=== PATIENT | female | born 1990 | race Caucasian/White ===

== ENCOUNTER → 2022-05-28 | Outpatient (REF) | payer OTHER ==
[2022-05-28 21:27] LABS: APPEARANCE, URINE MANUAL HAZY (CLEAR); COLOR, URINE MANUAL YELLOW (YELLOW); PH,URINE MAN 5.5 UNITS (5.0 - 7.0); PROTEIN, URINE MANUAL 2+ mg/dL (NEGATIVE)
[2022-05-28 21:28] LABS: BILIRUBIN, URINE MANUAL NEGATIVE (NEGATIVE); BLOOD URINE MANUAL POSITIVE (NEGATIVE); GLUCOSE, URINE (UA) MANUAL NEGATIVE (NEGATIVE); KETONE, URINE MANUAL NEGATIVE (NEGATIVE); LEUKOCYTE ESTERASE, URINE MAN POSITIVE (NEGATIVE); NITRITE, URINE MANUAL POSITIVE (NEGATIVE); UROBILINOGEN, URINE MANUAL NORMAL (NORMAL)
[2022-05-28 21:43] LABS: BACTERIA, URINE SMALL AMOUNT; HYALINE CAST, URINE NONE SEEN /lpf (0-1); RBC, URINE 40-50 /hpf (0-3); SQUAMOUS EPITHELIAL CELL URINE MOD AMOUNT /hpf (SMALL AMT); WBC, URINE 30-40 /hpf (0-3)
== END ==
LOC: M LAB REF 21:21
PROVIDERS: ATTEND Physician Assistant Medical
DX: N39.0 Urinary tract infection, site not specified (principal)

== ENCOUNTER → 2022-07-17 | Outpatient (REF) | payer OTHER ==
[2022-07-17 14:05] LABS: APPEARANCE, URINE HAZY (CLEAR); BACTERIA, URINE AUTO 1+ (NEGATIVE); BILIRUBIN, URINE AUTO NEGATIVE (NEGATIVE); BLOOD, URINE BLOOD NEGATIVE (NEGATIVE); COLOR, URINE YELLOW (YELLOW); GLUCOSE, URINE (UA) AUTO NEGATIVE (NEGATIVE); KETONE, URINE AUTO NEGATIVE (NEGATIVE); LEUKOCYTE ESTERASE, URINE AUTO 2+ (NEGATIVE); NITRITE, URINE AUTO NEGATIVE (NEGATIVE); PROTEIN, URINE AUTO NEGATIVE (NEGATIVE); RBC, URINE AUTO 4 /HPF (0-3); SQUAMOUS EPITHELIAL CELL UR AU 3 /HPF (0-6); UROBILINOGEN, URINE AUTO 0.2 mg/dL (0.0-2.0); WBC, URINE AUTO 59 /HPF (0-3)
== END ==
LOC: M LAB REF 12:30
PROVIDERS: ATTEND Physician Assistant Medical
DX: N39.0 Urinary tract infection, site not specified (principal)

== ENCOUNTER → 2022-08-03 | Outpatient (REF) | payer OTHER | LOC: M LAB REF 08:42 | PROVIDERS: ATTEND Internal Medicine | DX: N39.0 Urinary tract infection, site not specified (principal) ==

== ENCOUNTER → 2022-09-02 | Outpatient (REF) | payer OTHER ==
[2022-09-02 13:45] LABS: APPEARANCE, URINE HAZY (CLEAR); BACTERIA, URINE AUTO 1+ (NEGATIVE); BILIRUBIN, URINE AUTO NEGATIVE (NEGATIVE); BLOOD, URINE BLOOD NEGATIVE (NEGATIVE); COLOR, URINE YELLOW (YELLOW); GLUCOSE, URINE (UA) AUTO NEGATIVE (NEGATIVE); KETONE, URINE AUTO TRACE mg/dL (NEGATIVE); LEUKOCYTE ESTERASE, URINE AUTO 3+ (NEGATIVE); NITRITE, URINE AUTO NEGATIVE (NEGATIVE); PROTEIN, URINE AUTO NEGATIVE (NEGATIVE); RBC, URINE AUTO 2 /HPF (0-3); SPECIFIC GRAVITY URINE AUTO 1.012 (1.002-1.035); SQUAMOUS EPITHELIAL CELL UR AU 1 /HPF (0-6); UROBILINOGEN, URINE AUTO 0.2 mg/dL (0.0-2.0); WBC, URINE AUTO 127 /HPF (0-3)
== END ==
LOC: M LAB REF 12:46
PROVIDERS: ATTEND Physician Assistant Medical
DX: N39.0 Urinary tract infection, site not specified (principal)

== ENCOUNTER 2022-10-26 14:15 | Outpatient (CLI) | payer OTHER ==
[~2022-10-26] VITALS: Ht 152.4 cm; Wt 63.2 kg
[2022-10-26 14:37] VITALS: BP 142/82; O2SAT 100
[2022-10-26] MEDS ORDERED: PRENTAB9 PO (14:49)
[2022-10-26] MEDS ORDERED: LEVOTAB10 PO (14:51)
[2022-10-26] MEDS ORDERED: PEPC1TAB5 PO (14:51)
[2022-10-26] MEDS ORDERED: ASPI81CH33 PO (14:51)
[2022-10-26] MEDS ORDERED: FLON1SPR NARES (14:51)
[2022-10-26] MEDS ORDERED: FAMO20TA PO (14:51)
[2022-10-26] MEDS ORDERED: MONT10TA97 PO (14:51)
[2022-10-26] MEDS ORDERED: HOME MED LIST COMPLETE! XX SCH (14:55)
[2022-10-26 15:54] LABS: HEMATOCRIT 35.4 % (36.0-47.0); HEMOGLOBIN 11.7 g/dl (12.0-15.5); MEAN CORPUSCULAR HEMOGLOBIN 33.1 pg (27.0-33.0); MEAN CORPUSCULAR HGB CONC 33.1 g/dl (32.0-36.5); PLATELET COUNT, AUTOMATED 262 10^3/uL (150-450); RED BLOOD COUNT 3.54 10^6/uL (4.00-5.40); WHITE BLOOD COUNT 9.7 10^3/uL (4.0-10.0)
[2022-10-26 16:12] LABS: INR 0.87
[2022-10-26 16:13] LABS: PARTIAL THROMBOPLASTIN TIME 24.4 SECONDS (24.8-34.2)
[2022-10-26 17:43] VITALS: BP 119/68
[2022-10-26 18:04] LABS: GC DNA AMPLIFICATION NEGATIVE (NEGATIVE)
[2022-10-26 18:51] VITALS: BP 115/59
[2022-10-26] MEDS ORDERED: FLUCONAZOLE 50MG TABLET PO ONE (20:00)
== END 2022-10-26 21:00 | disposition home or self-care (01) ==
LOC: M LDO 14:15
PROVIDERS: ATTEND Obstetrics & Gynecology
DX: O23.592 Infection of other part of genital tract in pregnancy, second trimester (principal); Z3A.22 22 weeks gestation of pregnancy; O44.02 Complete placenta previa NOS or without hemorrhage, second trimester; Z88.8 Allergy status to other drugs, medicaments and biological substances; Z91.018 Allergy to other foods; Z91.040 Latex allergy status; Z91.011 Allergy to milk products; Z91.010 Allergy to peanuts; Z88.2 Allergy status to sulfonamides
CPT/HCPCS: 36415; 59025; 76815; 76817; 81001; 85027; 85384; 85610; 85730; 86850; 86900; 86901; 87810; 87850; G0463

== ENCOUNTER 2023-01-26 16:46 | Outpatient (CLI) | payer OTHER ==
[~2023-01-26] VITALS: Ht 154.9 cm; Wt 66.9 kg
[~2023-01-26 16:46] MED LIST: ASPI81CH33 PO; FAMO20TA PO; FLON1SPR NARES; LEVOTAB10 PO; MONT10TA97 PO; PEPC1TAB5 PO; PRENTAB9 PO
[2023-01-26] MEDS ORDERED: HOME MED LIST COMPLETE! XX SCH (17:00)
[2023-01-26 17:14] VITALS: BP 137/72
[2023-01-26] MEDS ORDERED: ONDANSETRON 4MG 2ML VIAL IV PRN (17:45)
[2023-01-26] MEDS ORDERED: FAMOTIDINE 20 MG TAB PO ONE (17:45)
[2023-01-26] MEDS ORDERED: LR 1,000 ML IV ONE ×2 (17:45→20:30)
[2023-01-26] MEDS ORDERED: BICITRA 30ML SOLN UDC PO ONE (18:05)
[2023-01-26 18:21] VITALS: BP 128/76
[2023-01-26] MEDS ORDERED: SLF 3 ML SYR IV PRN (18:40)
[2023-01-26 18:41] LABS: ALBUMIN 2.8 G/DL (3.2-5.2); ALKALINE PHOSPHATASE 138 U/L (46-116); ALT/SGPT 20 U/L (7.0-40); AST/SGOT 19 U/L (<34); BILIRUBIN,TOTAL 0.4 MG/DL (0.3-1.2); BLOOD UREA NITROGEN < 5 MG/DL (9-23); CARBON DIOXIDE LEVEL 25 MMOL/L (20-31); CHLORIDE LEVEL 104 MMOL/L (98-107); CREATININE FOR GFR 0.35 MG/DL (0.55-1.30); GLOMERULAR FILTRATION RATE > 60.0 (>60); GLUCOSE, FASTING 88 MG/DL (60-100); POTASSIUM SERUM 3.7 MMOL/L (3.5-5.1); SODIUM LEVEL 138 MMOL/L (136-145); TOTAL PROTEIN 5.8 G/DL (5.7-8.2)
[2023-01-26 19:17] VITALS: BP 133/71
[2023-01-26 19:30] LABS: HEMATOCRIT 40.1 % (36.0-47.0); HEMOGLOBIN 13.2 g/dl (12.0-15.5); MEAN CORPUSCULAR HEMOGLOBIN 32.4 pg (27.0-33.0); MEAN CORPUSCULAR HGB CONC 32.9 g/dl (32.0-36.5); MEAN CORPUSCULAR VOLUME 98.3 fl (80.0-96.0); PLATELET COUNT, AUTOMATED 277 10^3/uL (150-450); RED BLOOD COUNT 4.08 10^6/uL (4.00-5.40); WHITE BLOOD COUNT 10.6 10^3/uL (4.0-10.0)
[2023-01-26 21:00] VITALS: BP 122/65
[2023-01-26] MEDS ORDERED: SLF 3 ML SYR IV SCH (22:00)
[2023-01-26] MEDS ORDERED: LR 1,000 ML IV SCH (22:10)
[2023-01-26 23:11] VITALS: BP 111/57
[2023-01-27 01:00] VITALS: BP 116/57
[2023-01-27 03:09] VITALS: BP 119/56
[2023-01-27 04:56] VITALS: BP 117/61
[2023-01-27] MEDS ORDERED: BETAMETHASONE SOLUSPAN 6MG/ML 5ML VIAL IM ONE (09:00)
== END 2023-01-27 08:35 | disposition home or self-care (01) ==
LOC: M LDO 16:46
PROVIDERS: ATTEND Obstetrics & Gynecology
DX: O60.03 Preterm labor without delivery, third trimester (principal); O34.211 Maternal care for low transverse scar from previous cesarean delivery; Z3A.35 35 weeks gestation of pregnancy; O21.2 Late vomiting of pregnancy; Z88.2 Allergy status to sulfonamides; Z88.8 Allergy status to other drugs, medicaments and biological substances; Z91.011 Allergy to milk products; Z91.010 Allergy to peanuts; Z91.040 Latex allergy status; Z79.82 Long term (current) use of aspirin; Z79.899 Other long term (current) drug therapy; Z87.59 Personal history of other complications of pregnancy, childbirth and the puerperium
CPT/HCPCS: 36415; 59025; 76815; 80053; 85027; 86850; 86900; 86901; 87081; 96361; 96372; 96374; G0463; J0702; J2405

== ENCOUNTER 2023-01-28 08:50 | Outpatient (CLI) | payer OTHER ==
[~2023-01-28] VITALS: Ht 152.4 cm; Wt 68.5 kg
[2023-01-28 09:22] VITALS: BP 116/71
[2023-01-28] MEDS ORDERED: HOME MED LIST COMPLETE! XX SCH (09:30)
[2023-01-28] MEDS ORDERED: BETAMETHASONE SOLUSPAN 6MG/ML 5ML VIAL IM ONE (10:00)
== END 2023-01-28 09:34 | disposition home or self-care (01) ==
LOC: M LDO 08:50
PROVIDERS: ATTEND Obstetrics & Gynecology
DX: O60.03 Preterm labor without delivery, third trimester (principal); O34.211 Maternal care for low transverse scar from previous cesarean delivery; Z3A.35 35 weeks gestation of pregnancy; Z88.2 Allergy status to sulfonamides; Z88.8 Allergy status to other drugs, medicaments and biological substances; Z91.011 Allergy to milk products; Z91.010 Allergy to peanuts; Z91.040 Latex allergy status; Z79.82 Long term (current) use of aspirin; Z79.899 Other long term (current) drug therapy; Z87.59 Personal history of other complications of pregnancy, childbirth and the puerperium

== ENCOUNTER 2023-01-28 23:40 | Inpatient (IN) | payer OTHER ==
[~2023-01-28] VITALS: Ht 152.4 cm; Wt 68.5 kg
[2023-01-29] VITALS (12 sets, daily range): BP systolic 100–136; BP diastolic 52–77; TEMP 97.7; O2SAT 96–99
[2023-01-29] MEDS ORDERED: LR 1,000 ML IV ONE (00:30)
[2023-01-29] MEDS ORDERED: NALBUPHINE HCL (10 MG/ML) 100MG/10ML MDV IV PRN (00:30)
[2023-01-29] MEDS ORDERED: TERBUTALINE SULFATE 1 MG/ML 1ML VIAL SC ONE (01:00)
[2023-01-29 01:27] LABS: APPEARANCE, URINE CLEAR (CLEAR); BACTERIA, URINE AUTO 1+ (NEGATIVE); BILIRUBIN, URINE AUTO NEGATIVE (NEGATIVE); BLOOD, URINE BLOOD NEGATIVE (NEGATIVE); COLOR, URINE STRAW (YELLOW); GLUCOSE, URINE (UA) AUTO NEGATIVE (NEGATIVE); KETONE, URINE AUTO 2+ mg/dL (NEGATIVE); LEUKOCYTE ESTERASE, URINE AUTO NEGATIVE (NEGATIVE); NITRITE, URINE AUTO NEGATIVE (NEGATIVE); PROTEIN, URINE AUTO NEGATIVE (NEGATIVE); RBC, URINE AUTO 1 /HPF (0-3); SPECIFIC GRAVITY URINE AUTO 1.005 (1.002-1.035); SQUAMOUS EPITHELIAL CELL UR AU 8 /HPF (0-6); UROBILINOGEN, URINE AUTO 0.2 mg/dL (0.0-2.0); WBC, URINE AUTO 1 /HPF (0-3)
[2023-01-29 01:44] LABS: HEMATOCRIT 39.6 % (36.0-47.0); HEMOGLOBIN 12.8 g/dl (12.0-15.5); MEAN CORPUSCULAR HEMOGLOBIN 32.2 pg (27.0-33.0); MEAN CORPUSCULAR HGB CONC 32.3 g/dl (32.0-36.5); MEAN CORPUSCULAR VOLUME 99.5 fl (80.0-96.0); PLATELET COUNT, AUTOMATED 280 10^3/uL (150-450); RED BLOOD COUNT 3.98 10^6/uL (4.00-5.40); WHITE BLOOD COUNT 11.8 10^3/uL (4.0-10.0)
[2023-01-29 03:13] LABS: LDH LACTATE DEHYDROGENASE 241 U/L (120-246)
[2023-01-29 04:22] LABS: ALBUMIN 3.1 G/DL (3.2-5.2); ALKALINE PHOSPHATASE 139 U/L (46-116); ALT/SGPT 27 U/L (7.0-40); AST/SGOT 27 U/L (<34); BILIRUBIN,TOTAL 0.4 MG/DL (0.3-1.2); BLOOD UREA NITROGEN 7 MG/DL (9-23); CALCIUM LEVEL 9.1 MG/DL (8.5-10.1); CARBON DIOXIDE LEVEL 25 MMOL/L (20-31); CHLORIDE LEVEL 104 MMOL/L (98-107); CREATININE FOR GFR 0.54 MG/DL (0.55-1.30); GLOMERULAR FILTRATION RATE > 60.0 (>60); GLUCOSE, FASTING 113 MG/DL (60-100); POTASSIUM SERUM 4.3 MMOL/L (3.5-5.1); SODIUM LEVEL 139 MMOL/L (136-145); TOTAL PROTEIN 6.1 G/DL (5.7-8.2)
[2023-01-29] MEDS ORDERED: LACTATED RINGER'S 1000 ML IV STA (07:11)
[2023-01-29] MEDS ORDERED: ceFAZolin SOD 2 GM in IV 1 EA IV ONE (07:15)
[2023-01-29] MEDS ORDERED: OXYTOCIN INJ 10UNITS/ML 1ML VIAL IM PRN (07:15)
[2023-01-29] MEDS ORDERED: TRANEXAMIC ACID INJection 1,000 MG in NS 100 ML IV PRN (07:15)
[2023-01-29] MEDS ORDERED: METHYLERGONOVINE MALEATE 0.2MG/ML 1ML VIAL IM PRN (07:15)
[2023-01-29] MEDS ORDERED: CARBOPROST TROMETHAMINE 250 MCG/ML AMP IM PRN (07:15)
[2023-01-29] MEDS ORDERED: BICITRA 30ML SOLN UDC PO ONE (07:35)
[2023-01-29] MEDS ORDERED: BICITRA 30ML SOLN UDC As Ordered ONE (07:37)
[2023-01-29] MEDS ORDERED: OXYTOCIN 30UNITS IN 0.9% NaCl 500ML IV BAG As Ordered ONE ×2 (07:53→09:16)
[2023-01-29] MEDS ORDERED: ONDANSETRON 4MG 2ML VIAL As Ordered ONE ×2 (07:53→10:36)
[2023-01-29] MEDS ORDERED: ACETAMINOPHEN 1000MG 100ML IV BAG As Ordered ONE (07:53)
[2023-01-29] MEDS ORDERED: KETOROLAC 60MG 2ML VIAL As Ordered ONE (07:53)
[2023-01-29] MEDS ORDERED: MORPHINE PRES-FREE INJ 10 MG/10 ML VIAL As Ordered ONE (07:53)
[2023-01-29] MEDS ORDERED: PHENYLephrine 500MCG 5ML (100MCG/ML) SYRINGE As Ordered ONE (08:16)
[2023-01-29] MEDS ORDERED: ePHEDrine SULFATE 25 MG/5 ML(5MG/ML) SYRINGE As Ordered ONE (08:16)
[2023-01-29] MEDS ORDERED: fentaNYL 100 MCG/2 ML INJECTION As Ordered ONE ×2 (08:42→10:31)
[2023-01-29 08:54] LABS: CORD GAS ABE A -1.8; CORD GAS HCO3 A 24.6 MMOL/L; CORD GAS O2 SAT A 90.7 %; CORD GAS PH A 7.328 UNITS; CORD GAS SBC A 22.8 MMOL/L; CORD GAS TCO2 A 26.1 MMOL/L
[2023-01-29 08:55] LABS: CORD GAS ABE V -2.4; CORD GAS HCO3 V 24.6 MMOL/L; CORD GAS O2 SAT V 52.7 %; CORD GAS PCO2 V 50.4 mmHg; CORD GAS PH V 7.306 UNITS; CORD GAS PO2 V 22.4 mmHg; CORD GAS SBC V 21.4 MMOL/L; CORD GAS TCO2 V 26.1 MMOL/L
[2023-01-29] MEDS: PRENATAL VITAMINS CHEWABLE TABLET PO SCH (09:00)
[2023-01-29] MEDS ORDERED: propofoL 200 MG/20 ML VIAL As Ordered ONE (09:05)
[2023-01-29] MEDS ORDERED: MOM 30ML SUSPENSION UDC PO PRN (10:10)
[2023-01-29] MEDS ORDERED: ONDANSETRON 4MG 2ML VIAL IV PRN ×2 (10:10→10:20)
[2023-01-29] MEDS ORDERED: oxyCODONE 5MG TAB PO PRN ×2 (10:10→10:20)
[2023-01-29] MEDS ORDERED: RHOGAM 300MCG (1500IU) INJ IM SCH (10:10)
[2023-01-29] MEDS ORDERED: SIMETHICONE 80MG CHEW TAB PO PRN (10:10)
[2023-01-29] MEDS ORDERED: NALOXONE INJ 0.4MG/1ML VIAL IV PRN ×2 (10:20)
[2023-01-29] MEDS ORDERED: diphenhydrAMINE 50MG/ML VIAL IV PRN (10:20)
[2023-01-29] MEDS ORDERED: HYDROMORPHONE HCL 0.5 MG/ 0.5 ML SYRINGE IV PRN (10:20)
[2023-01-29] MEDS ORDERED: **NOTE PATIENT COMMENT** MISC XX SCH (10:20)
[2023-01-29] MEDS: SLF 3 ML SYR IV SCH ×2 (10:20→17:16)
[2023-01-29] MEDS: fentaNYL 100 MCG/2 ML INJECTION IV PRN ×2 (10:34→10:55)
[2023-01-29] MEDS: METOCLOPRAMIDE INJ 10MG/2ML VIAL IV PRN ×2 (13:18→18:44)
[2023-01-29] MEDS: KETOROLAC 30 MG/ML 1ML VIAL IV SCH ×2 (15:26→20:58)
[2023-01-29 15:42] LABS: URIC ACID 6.4 MG/DL (3.1-7.8)
[2023-01-29] MEDS ORDERED: PROMETHAZINE 25MG/ML 1ML VIAL IV PRN (19:30)
[2023-01-29] MEDS: LR 1,000 ML IV SCH (20:04)
[2023-01-29] MEDS: DOCUSATE SODIUM 100MG CAPSULE PO SCH (21:00)
[2023-01-30] MEDS: SLF 3 ML SYR IV SCH (02:20)
[2023-01-30] MEDS: LR 1,000 ML IV SCH (03:30)
[2023-01-30] MEDS: KETOROLAC 30 MG/ML 1ML VIAL IV SCH (03:48)
[2023-01-30 06:00] VITALS: BP 111/64
[2023-01-30] MEDS: FLUTICASONE PROP 0.05% NASAL SPRAY 16 GM (FLONASE) NARES SCH (07:34)
[2023-01-30] MEDS: DOCUSATE SODIUM 100MG CAPSULE PO SCH ×2 (07:34→20:16)
[2023-01-30] MEDS: PRENATAL VITAMINS CHEWABLE TABLET PO SCH (07:34)
[2023-01-30] MEDS: MONTELUKAST 10 MG TAB PO SCH (07:34)
[2023-01-30] MEDS: FAMOTIDINE 20 MG TAB PO SCH (07:34)
[2023-01-30 08:24] LABS: HEMATOCRIT 32.3 % (36.0-47.0); MEAN CORPUSCULAR HEMOGLOBIN 32.3 pg (27.0-33.0); MEAN CORPUSCULAR HGB CONC 31.6 g/dl (32.0-36.5); MEAN CORPUSCULAR VOLUME 102.2 fl (80.0-96.0); PLATELET COUNT, AUTOMATED 225 10^3/uL (150-450); RED BLOOD COUNT 3.16 10^6/uL (4.00-5.40); WHITE BLOOD COUNT 12.3 10^3/uL (4.0-10.0)
[2023-01-30 08:25] LABS: HEMOGLOBIN 10.2 g/dl (12.0-15.5)
[2023-01-30] MEDS ORDERED: PRENATAL VITAMINS CHEWABLE TABLET PO SCH (09:00)
[2023-01-30 10:00] VITALS: BP 114/65; O2SAT 98
[2023-01-30] MEDS: IBUPROFEN 800 MG TAB PO SCH ×2 (10:30→18:25)
[2023-01-30 18:45] VITALS: BP 121/75; O2SAT 100
[2023-01-30 22:00] VITALS: BP 122/74; O2SAT 99
[2023-01-31 01:49] VITALS: BP 115/72; O2SAT 99
[2023-01-31] MEDS: IBUPROFEN 800 MG TAB PO SCH ×3 (02:23→22:08)
[2023-01-31 05:46] VITALS: BP 127/71; O2SAT 99
[2023-01-31] MEDS ORDERED: MEASLES,MUMPS,RUBELLA VACCINE INJ (MMR-II) SC.IMMUN ONE (09:00)
[2023-01-31 10:00] VITALS: BP 129/82; O2SAT 98
[2023-01-31] MEDS: MONTELUKAST 10 MG TAB PO SCH (10:05)
[2023-01-31] MEDS: PRENATAL VITAMINS CHEWABLE TABLET PO SCH (10:05)
[2023-01-31] MEDS: FLUTICASONE PROP 0.05% NASAL SPRAY 16 GM (FLONASE) NARES SCH (10:05)
[2023-01-31] MEDS: DOCUSATE SODIUM 100MG CAPSULE PO SCH ×2 (10:05→22:07)
[2023-01-31] MEDS: FAMOTIDINE 20 MG TAB PO SCH (10:05)
[2023-01-31] MEDS: oxyCODONE 5MG TAB PO PRN ×2 (10:07→16:29)
[2023-01-31 18:00] VITALS: BP 122/68; O2SAT 99
[2023-02-01] MEDS: oxyCODONE 5MG TAB PO PRN ×3 (00:37→14:07)
[2023-02-01] MEDS: IBUPROFEN 800 MG TAB PO SCH ×2 (05:27→14:06)
[2023-02-01 05:57] VITALS: BP 115/75; O2SAT 97
[2023-02-01 07:53] LABS: HEMATOCRIT 35.5 % (36.0-47.0); HEMOGLOBIN 11.5 g/dl (12.0-15.5); MEAN CORPUSCULAR HEMOGLOBIN 32.5 pg (27.0-33.0); MEAN CORPUSCULAR HGB CONC 32.4 g/dl (32.0-36.5); MEAN CORPUSCULAR VOLUME 100.3 fl (80.0-96.0); PLATELET COUNT, AUTOMATED 323 10^3/uL (150-450); RED BLOOD COUNT 3.54 10^6/uL (4.00-5.40); WHITE BLOOD COUNT 10.6 10^3/uL (4.0-10.0)
[2023-02-01] MEDS: MONTELUKAST 10 MG TAB PO SCH (09:22)
[2023-02-01] MEDS: FLUTICASONE PROP 0.05% NASAL SPRAY 16 GM (FLONASE) NARES SCH (09:22)
[2023-02-01] MEDS: DOCUSATE SODIUM 100MG CAPSULE PO SCH (09:22)
[2023-02-01] MEDS: FAMOTIDINE 20 MG TAB PO SCH (09:22)
[2023-02-01] MEDS: PRENATAL VITAMINS CHEWABLE TABLET PO SCH (09:22)
[2023-02-01] MEDS ORDERED: IBUP80TA PO (09:56)
[2023-02-01] MEDS ORDERED: OXYC-517 PO (09:56)
[2023-02-03] MEDS ORDERED: GABA-282 PO (07:40)
[2023-02-03] MEDS ORDERED: ASPI-226 PO (07:40)
[2023-02-03] MEDS ORDERED: FERR325T19 PO (07:40)
[2023-02-03] MEDS ORDERED: VITA500T9 PO (07:40)
[2023-02-03] MEDS ORDERED: POTA-151 PO (07:40)
== END 2023-02-01 17:04 | disposition home or self-care (01) | DRG 785 ==
LOC: M LDO 23:40 → M LDI 01-29 07:08 → M OBS 01-29 11:25
PROVIDERS: ADMIT Obstetrics & Gynecology; ATTEND Obstetrics & Gynecology
PROC: 0UB70ZZ Excision of Bilateral Fallopian Tubes, Open Approach (ICD-10-PCS; 2023-01-29)
PROC: 10D00Z1 Extraction of Products of Conception, Low, Open Approach (ICD-10-PCS; principal; 2023-01-29 07:30)
DX: O34.211 Maternal care for low transverse scar from previous cesarean delivery (principal); Z3A.35 35 weeks gestation of pregnancy; O36.8330 Maternal care for abnormalities of the fetal heart rate or rhythm, third trimester, not applicable or unspecified; Z37.0 Single live birth; Z30.2 Encounter for sterilization

== ENCOUNTER 2025-04-16 13:40 | Emergency (ER) | payer OTHER ==
[~2025-04-16] VITALS: Ht 152.4 cm; Wt 53.7 kg
[~2025-04-16 13:40] MED LIST changes: +ASPI-226 PO; +FERR325T19 PO; +GABA-1172 PO; +IBUP80TA PO; +OXYC-517 PO; +POTA-151 PO; +VITA500T9 PO
[2025-04-16] MEDS ORDERED: [UNRECOGNIZED DRUG - OTHER] (13:54)
[2025-04-16] MEDS ORDERED: AZEL1SPR3 (13:54)
[2025-04-16] MEDS ORDERED: FAMO1TAB11 (13:54)
[2025-04-16 14:18] LABS: BASO # 0.0 10^3/uL (0.0-0.2); BASO % 0.4 % (0.0-1.0); EOS # 0.1 10^3/uL (0.0-0.5); EOS % 1.3 % (0.0-3.0); LYMPH # 2.3 10^3/uL (1.5-5.0); LYMPH % 30.1 % (24.0-44.0); MONO # 0.8 10^3/uL (0.0-0.8); MONO % 10.4 % (2.0-8.0); NEUTROPHILS # 4.3 10^3/uL (1.5-8.5); NEUTROPHILS % 57.7 % (36.0-66.0); PLATELET COUNT, AUTOMATED 301 10^3/uL (150-450)
[2025-04-16 14:52] LABS: CALCIUM LEVEL 8.9 MG/DL (8.5-10.1); CARBON DIOXIDE LEVEL 29 MMOL/L (20-31); CHLORIDE LEVEL 103 MMOL/L (98-107); CREATININE FOR GFR 0.50 MG/DL (0.55-1.30); GLOMERULAR FILTRATION RATE > 90.0 (>60); HCG, SERUM QUALITATIVE NEGATIVE (NEGATIVE); POTASSIUM SERUM 3.7 MMOL/L (3.5-5.1); SODIUM LEVEL 140 MMOL/L (136-145)
[2025-04-16 15:19] LABS: MONO SCRN NEGATIVE (NEGATIVE)
[2025-04-16] MEDS ORDERED: MAGICMW SSP (15:59)
[2025-04-16 16:07] VITALS: BP 123/79; TEMP 97.6; O2SAT 97
== END 2025-04-16 16:17 | disposition home or self-care (01) ==
LOC: M ED 13:40
DX: U07.1 COVID-19 (principal); J02.9 Acute pharyngitis, unspecified; Z88.2 Allergy status to sulfonamides; Z91.040 Latex allergy status; Z79.1 Long term (current) use of non-steroidal anti-inflammatories (NSAID); Z79.899 Other long term (current) drug therapy